=== PATIENT | female | born 1990 | race Caucasian/White ===

== ENCOUNTER 2019-12-02 01:25 | Emergency (ER) | payer MEDICARE, MEDICAID ==
--- NOTE | 2019-12-02 08:54 | RAD ---
CHEST 1 VIEW: HISTORY: Cough. COMPARISON: Chest radiograph 08/10/2016. FINDINGS: Lungs are clear. No pneumothorax or effusion. Cardiac silhouette and mediastinal contours are withi n normal limits. No acute osseous abnormality. IMPRESSION: No acute intrathoracic abnormality. POS: CET
== END 2019-12-02 02:25 | disposition home or self-care (01) ==
LOC: ERS 01:25
DX: R05 Cough (principal)
CPT/HCPCS: 71045